=== PATIENT | female | born 1990 | race Hispanic/Latino ===

== ENCOUNTER 2016-09-25 15:37 | Emergency (ER) | payer OTHER ==
[~2016-09-25] VITALS: Ht 157.5 cm; Wt 81.8 kg
[~2016-09-25 15:37] MED LIST: NOMED
[2016-09-25 15:43] VITALS: BP 142/99; PULSE 119; O2SAT 99
[2016-09-25 16:52] LABS: BASOPHILS % (AUTO) 0.3 % (0-3); EOSINOPHILS % (AUTO) 3.1 % (0-5); MONOCYTES % (AUTO) 8.6 % (4-12); Mean Corpuscular Hemoglobin 29.7 pg (27.0-35.0); Mean Corpuscular Volume 86.8 fL (81-100); NEUTROPHILS % (AUTO) 65.3 % (40-74); Platelet Count 343 bil/L (150-400)
--- NOTE | 2016-09-25 17:03 | DRSVH ---
PROCEDURE: X-RAY CHEST ONE VIEW, PORTABLE ([id number]) INDICATIONS: CP TECHNIQUE: One view of the chest was acquired. COMPARISON: None. FINDINGS: Surgical changes and devices: None. Lungs and pleura: No pleural effusions or pneumothorax. Lungs are clear. Mediastinum: Mediastinal contours appear normal. Heart size is normal. Bones and chest wall: No suspicious bony lesions. Overlying soft tissues appear unremarkable. IMPRESSION: No acute process. Dictated by: Jeanne Abad M.D. on 09/25/2016 at 17:00 Approved by: Jeanne Abad M.D. on 09/25/2016 at 17:02
[2016-09-25 17:18] LABS: TROPONIN T < 0.010 ug/L (0.0-0.011)
[2016-09-25 17:25] LABS: Magnesium 2.2 mg/dL (1.6-2.6)
--- NOTE | 2016-09-25 18:09 | ED.REPORT ---
HPI-Chest Pain Under 40 Date of Service Sep 25, 2016 ED Provider: Tor Cabezas MD The patient is an otherwise healthy 26 year old female who presents to the ED due to chest tightness and racing heart for the past 4 days. Associated symptoms include mild SOB, difficulty breathing and pain w/ inhalation. She specifies that there is no chest pain, just tightness. Last night, she came to the waiting room at the [facility] ED, saw it was busy, and went to the [place] ED instead. Their evaluation included a normal EKG w/ a rate of 108, negative chest x-ray, and a clinical impression of atypical chest pain. At discharge, her heart rate was in the 80's. They sent her home w/ Naproxen which was not effective in reducing her pain. Her symptoms have continued since onset with no relief. Pt states it feels like a knot that covers the left chest and has occasional spikes of sharp pain rated at 8/10. It does not go away in her sleep. She denies nausea, fever, vomiting, and diarrhea. She does not use alcohol, drugs, or control. Dr. Orlando is her PCP. No past significant medical history. Nursing Notes Stated Complaint: CHEST PRESSURE, RAPID HEART RATE Chief Complaint: Dysrhythmia/Cardiac Nursing Notes Reviewed: Yes Allergies: Coded Allergies: No Known Allergies (Verified Allergy, Unknown, 09/25/16) Scheduled Atenolol (Atenolol) 25 Mg Tablet 25 MG PO DAILY Miscellaneous Medications No Historical Medication (No Historical Medication) Ea General Time Seen by MD: 17:58 Chief Complaint Chest pressure, Other Hx Obtained From: Patient Arrived By: Walk-in Sudden in Onset?: Yes Onset Occurred: 4 days ago Symptom Duration: Since onset Location: : Chest left Quality: Painful, Pressure Radiation: : Does not radiate Severity: Current: Pain level 8 out of 10 Recent Healthcare: Recent doctor visit Similar Sx Previous: Yes Past Medical History Past Medical History denies Past Surgical History denies Family History breast cancer (mother) stroke (dad) Smoking History Never Smoker Social History Alcohol Use: Denies alcohol use Drug Use: Denies drug use Other Social History: Local resident Ambulatory Status Independent Review of Systems Constitutional: Denies: Fever Respiratory: Reports: Shortness of breath Cardiovascular: Reports: Chest pain GI: Denies: Diarrhea, Nausea, Vomiting Complete sys rev & neg: except as marked. Physical Exam Initial Vital Signs Vital Signs (First) Date Time Temp Pulse Resp B/P Pulse Ox O2 Delivery O2 Flow Rate FiO2 09/25/16 15:43 36.6 119 142/99 99 09/25/16 20:42 16 Room Air Initial VS: Reviewed Head / Eyes: Atraumatic, Normocephalic, PERRL ENT: Mucous membranes moist, Conjunctiva normal Extremities: Vascular intact, No swelling, No tenderness Skin: Warm, Dry Neurologic: Alert, Oriented Psychiatric: Mood/affect normal, Behavior normal General/Constitutional: Awake, Alert, Cooperative, Not toxic appearing Respiratory / Chest: Atraumatic, Breath sounds NL, Breath sounds = bilat Cardiovascular: Heart rate NL, Regular rhythm, No gallop, No murmurs, No rubs Heart Rate / Rhythm: Positive: Tachycardia Neck: Atraumatic, Supple, No meningismus, Thyroid NL Interpretation & Diagnostics Lab Results Interpretation Result Diagram: 09/25/16 1629 09/25/16 1629 Test 09/25/16 16:29 09/25/16 18:45 White Blood Count 9.9th/mm3 (3.8-10.1) Red Blood Count 4.78mil/mm3 (3.90-5.20) Hemoglobin 14.2g/dL (12.0-15.6) Hematocrit 41.5% (35.0-46.0) Mean Corpuscular Volume 86.8fL (81-100) Mean Corpuscular Hemoglobin 29.7pg (27.0-35.0) Mean Corpuscular Hemoglobin Concent 34.2% (32.0-37.0) Red Cell Distribution Width 12.7% (12.3-15.4) Platelet Count 343bil/L (150-400) Neutrophils (%) (Auto) 65.3% (40-74) Lymphocytes (%) (Auto) 22.5% (14-46) Monocytes (%) (Auto) 8.6% (4-12) Eosinophils (%) (Auto) 3.1% (0-5) Basophils (%) (Auto) 0.3% (0-3) D-Dimer < 0.5mg/L (<0.50) Sodium Level 140mEq/L (134-144) Potassium Level 3.8mEq/L (3.5-5.2) Chloride Level 101mEq/L (97-108) Carbon Dioxide Level 23mmol/L (18-29) Blood Urea Nitrogen 10mg/dL (6-20) Creatinine 0.56mg/dL (0.57-1.00) Estimat Glomerular Filtration Rate 191mL/min (>59) Glucose Level 125mg/dL (60-99) Calcium Level 9.5mg/dL (8.5-10.1) Magnesium Level 2.2mg/dL (1.6-2.6) Total Bilirubin 0.6mg/dL (0.0-1.2) Aspartate Amino Transf (AST/SGOT) 30U/L (0-50) Alanine Aminotransferase (ALT/SGPT) 60U/L (0-32) Alkaline Phosphatase 63U/L (25-150) Troponin T < 0.010ug/L (0.0-0.011) Total Protein 8.1g/dL (6.4-8.4) Albumin 4.5g/dL (3.4-5.0) Thyroid Stimulating Hormone (TSH) 2.210uIU/mL (0.450-4.500) Hold Gandhi Top Tube Received (Received) Hold Urine Received (Received) ECG Interpretation ECG Interpretation: sinus tachycardia (111) otherwise normal Interpreted by: ED physician X-Ray Chest Interpretation Chest Xray Interpretation: IMPRESSION: No acute process. Dictated by: Jeanne Abad M.D. on 09/25/2016 at 17:00 Approved by: Jeanne Abad M.D. on 09/25/2016 at 17:02 View: Portable Interpretation / Wet Read by: Interpret - Radiologist Re-Eval/Medical Decision Med Decision/Clinical Course 26-year-old female with pleuritic-type chest pain and a tender anterior chest wall. ECG is normal other than sinus tachycardia, the patient also reports symptoms of tachycardia which is new for her and uncomfortable. Troponin is normal, no changes to suggest ischemia or pericarditis. Normal d-dimer excludes pulmonary embolism. No evidence for an acute infection. TSH is normal, I do not believe that she is hyperthyroid. He is a patient finds her tachycardia to be bothersome, I offered to start her on a beta traci for rate control which she requested. She is advised to follow-up with her primary care provider and use ibuprofen for her pain. Re-Evaluation/Progress : Time of Eval: 19:13 Patient Status: Mild relief Re-Evaluation/Progress Note: Pt rechecked. Plan for TSH and Atenolol and follow up appointment with Dr. Orlando. RTER warnings given. Pt understands and agrees with plan. Counseled Regarding: Diagnosis, Lab results, Need for follow-up, When/why to return to ED Discharge & Departure Primary Impression: Chest wall pain Additional Impression: Sinus tachycardia Disposition: Home Discharge Condition All VS Reviewed: Yes Condition: Stable Additional Instructions: Emergency Department evaluation included interview, examination, labs, chest x- ray, and ECG. There are no emergent or dangerous causes for your symptoms. There are no signs of pneumonia or heart disease. Thyroid function test was normal. Use Ibuprofen and Tylenol as needed for pain and continue to take Naproxen regularly twice a day, with food. I have given you a dose of Atenolol which is a Beta Traci to slow your heart rate. It may make you slightly tired. Avoid standing up too abruptly on this medication. If your heart rate is less then 50 on the Atenolol, discontinue use. Follow up with Dr. Orlando in the next week for further evaluation. Return to the Emergency Department for any new or worsening symptoms. I hope you feel better soon! Referrals: Bentley Orlando MD (PCP) Luis Antonio Attestation Portion of this note were transcribed by Marni Alves. I, Dr. Cabezas, personally performed the history, physical exam, and medical decision-making: I reviewed and confirmed the accuracy for the information in the transcribed note. Signed by: luis antonio Gonzalez, 09/25/16 2000 copies to: Bentley Orlando MD, Donald L MD Sep 25, 2016 18:09 Marni Alves Sep 25, 2016 18:13
[2016-09-25] MEDS ORDERED: ATEN25TA PO (20:23)
[2016-09-25 20:42] VITALS: BP 116/83; PULSE 81; RESP 16; O2SAT 100
== END 2016-09-25 20:44 | disposition home or self-care (01) ==
LOC: SED 15:37
DX: R07.89 Other chest pain (principal); R00.0 Tachycardia, unspecified; R06.02 Shortness of breath